=== PATIENT | male | born 1975 | race African-American/Black ===

== ENCOUNTER 2018-10-23 12:30 | Emergency (ER) | payer MEDICARE ==
[~2018-10-23 12:30] MED LIST: ISOVUE-370 76%-LOCM 1 ML ONE
[2018-10-23 13:04] LABS: #Eosinphils 0.2 thou/uL (0.0-0.7); #Lymphocytes 1.7 thou/uL (1.20-3.40); #Monocytes 0.4 thou/uL (0.11-0.59); #Neutrophils 2.8 thou/uL (1.40-6.50); %Basophils 0.8 % (0.0-1.0); %Eosinophils 3.1 % (0.0-10.0); %Lymphocytes 33.5 % (21.0-51.0); %Monocytes 7.5 % (0.0-10.0); Hemoglobin 13.4 g/dL (14.0-18.0); Mean Corpuscular HGB CONC 31.7 g/dL (32.0-36.0); Mean Corpuscular Hemoglobin 27.5 pg (27.0-31.0); Mean Corpuscular Volume 86.7 fL (78.0-98.0); Mean Platelet Volume 8.6 fL (7.4-10.4); Platelet Count 219 thou/uL (130-400); RBC Distribution Width 13.9 % (11.5-14.5); Red Blood Cell (RBC) Count 4.85 mill/uL (4.70-6.10); White Blood Cell (WBC) Count 5.1 thou/uL (4.8-10.8)
[2018-10-23 13:21] LABS: ALT (SGPT) 11 U/L (8-55); AST (SGOT) 13 U/L (5-34); Albumin 3.9 g/dL (3.5-5.0); Alkaline Phosphatase 62 U/L (40-150); Anion Gap 12 mmol/L (10-20); BUN (Urea Nitrogen) 9 mg/dL (8.9-20.6); Bilirubin, Total 0.6 mg/dL (0.2-1.2); Calc. Creatinine Clearance 0 mL/min (70-130); Calcium 9.5 mg/dL (7.8-10.44); Carbon Dioxide 24 mmol/L (22-29); Chloride 106 mmol/L (98-107); Estimated GFR-MDRD Greater than 90; Globulin 3.8 g/dL (2.4-3.5); Glucose 108 mg/dL (70-105); Lipase 25 U/L (8-78); Potassium 4.1 mmol/L (3.5-5.1); Protein, Total 7.7 g/dL (6.0-8.3); Sodium 138 mmol/L (136-145)
--- NOTE | 2018-10-23 13:35 | CT ---
CT OF THE ABDOMEN AND PELVIS WITH IV CONTRAST: DATE: 10/23/2018. PROVIDED CLINICAL HISTORY: Left lower quadrant pain. FINDINGS: The visualized lung bases are free of significant opacity. There is a subcentimeter hypodensity emanating from the inferior pole of the right kidney with questi oned circumferential enhancement. The solid abdominal organs demonstrate an otherwise unremarkable. CT appearance. There are numerous sigmoid and descending colonic diverticula present. There is focal inflammatory f at stranding about the sigmoid colon-descending colon junction. There is extraluminal gas present at the caudal aspects of this inflammatory change, without evidence for a focal fluid collection. There is no evidence for free intraperitoneal fluid. No evidence for bowel obstruction. No addition al fat stranding is evident. The osseous structures demonstrate no concerning lytic or blastic lesions. Degenerative changes are seen involving the left sacroiliac joint. Urinary bladder wall appears prominent in thickness which may be on the basis of cystitis or due to incomplete distention. IMPRESSION: 1. Changes of acute diverticulitis involving the descending colon-sigmoid colon junction with associ ated contained perforation. No evidence for an organized fluid collection to suggest abscess. 2. Apparent thickening involving the urinary bladder wall which may reflect cystitis or could be art ifactual on the basis of incomplete distention. POS: [facility]
[2018-10-23] MEDS ORDERED: Ciprofloxacin Lactate/D5W 400 mg/200 ml Premix ONE (15:14)
[2018-10-23] MEDS ORDERED: Sodium Chloride 0.9% 1,000 ML ONE (15:14)
[2018-10-23] MEDS ORDERED: metroNIDAZOLE 500 MG/100 ML BAG ONE (15:14)
[2018-10-23 15:17] LABS: Bilirubin Negative (Negative); Blood, Urine Trace (Negative); Clarity Clear (Clear); Glucose, Urine (Dipstick) Negative (Negative); Leukocyte Negative (Negative); Nitrite Negative (Negative); Protein, Urine (Dipstick) Negative (Neg-Trace); Urobilinogen 0.2 mg/dL (0.2-1.0); pH, Urine 7.5 (5.0-9.0)
[2018-10-23 15:25] LABS: Bacteria/HPF Rare-Few HPF (None Seen); RBC/HPF 0-3 HPF (0-3); Squamous Epithelial 0-3 HPF (0-3)
== END 2018-10-23 17:05 | disposition short-term general hospital (02) ==
LOC: MADERS 12:30
DX: K57.20 Diverticulitis of large intestine with perforation and abscess without bleeding (principal); Z87.891 Personal history of nicotine dependence
CPT/HCPCS: 74177; 80053; 81003; 81015; 83605; 83690; 85025; 87040; 94760; 96365; 96367; J0744; J7050